=== PATIENT | female | born 1995 | race Native Hawaiian/Other Pacific Islander ===

== ENCOUNTER 2020-09-19 17:04 | Emergency (ER) | payer OTHER ==
[~2020-09-19] VITALS: Ht 180.3 cm; Wt 84.4 kg
[2020-09-19 17:56] VITALS: BP 132/84; TEMP 99.1
== END 2020-09-19 17:57 | disposition home or self-care (01) ==
LOC: ED 17:04
DX: T19.2XXA Foreign body in vulva and vagina, initial encounter (principal); S70.261A Insect bite (nonvenomous), right hip, initial encounter; L08.9 Local infection of the skin and subcutaneous tissue, unspecified; W57.XXXA Bitten or stung by nonvenomous insect and other nonvenomous arthropods, initial encounter; Y92.89 Other specified places as the place of occurrence of the external cause
CPT/HCPCS: 99284